=== PATIENT | male | born 1960 | race Caucasian/White ===

== ENCOUNTER 2017-01-07 06:24 | Inpatient (IN) | payer BC ==
[2016-12-31 11:39] LABS: HEMOGLOBIN 15.8 g/dL (13.6-17.8)
[2016-12-31 11:54] LABS: CALCIUM, SERUM 9.1 MG/DL (8.5-10.4); CHLORIDE, SERUM 95 MMOL/L (96-112); CO2 (CARBON DIOXIDE) 29 MMOL/L (24-34); CREATININE 0.85 MG/DL (0.70-1.30); GFR AFRICAN AMERICAN 114 ML/MIN (>=60); GFR NON AFRICAN AMERICAN 98 ML/MIN (>=60); SODIUM, SERUM 133 MMOL/L (135-148)
[2016-12-31 11:55] LABS: BUN (BLOOD UREA NITROGEN) 8 MG/DL (6-23); GLUCOSE, SERUM 137 MG/DL (60-99)
[2016-12-31 11:57] LABS: POTASSIUM, SERUM 3.4 MMOL/L (3.5-5.3)
--- NOTE | ~2017-01-07 | DS ---
Discharge Summary [facility] [address] [place]. [address] NAME: ANGELIC BEEBE : 62 STATUS : DIS IN PAT#: [id number] AGE: 56 ADM/REG DATE : 01/07/17 MR#: [id number] REPORT SERV DATE: 01/22/17 DICTATED BY: YOVANI CARLSON DATE: 01/21/17 REPORT STATUS : Draft TRANSCRIBED BY: MODLuis Enrique DATE: 01/21/17 Data Collection from hospitalization DISCHARGE DIAGNOSES: 1. Severe spinal stenosis with myelopathy at T11-12, secondary to large synovial cyst and facet hypertrophy. 2. Hypertension. 3. Osteoarthritis. 4. Exogenous obesity. 5. Hypercholesterolemia. CONSULTATIONS: None. PROCEDURES PERFORMED: Microscopic and navigation-assisted surgery; complete laminectomy, foraminotomy, and facetectomy, T11-T12; Janay osteotomy at T11; posterolateral spinal fusion with Solera nonsegmental instrumentation T11-T12, 01/07/2017. PATHOLOGY: Vertebral bone and soft tissue, thoracic spine-chronic reactive changes (no crystals). Soft tissues thoracic spine-benign cyst consistent with ganglion cyst. DISCHARGE MEDICATIONS: Zyloprim 300 mg daily, Norvasc 10 mg daily, Lipitor 10 mg daily, Colace 100 mg daily, Lasix 40 mg daily, Zestoretic one tablet daily, Robaxin 750 mg three times a day, Toprol-XL 25 mg daily, Prilosec 20 mg daily, Roxicodone 5-10 mg every four to six hours as needed, Klor-Con 10 mEq daily, Flomax 0.4 mg daily, Ultram 50 mg every six hours as needed. CONDITION AT DISCHARGE: Stable. DISPOSITION: The patient was discharged home on a regular diet with activities as instructed. He would follow up with Dr. Octavia Busch, 01/22/2017. HOSPITAL COURSE: This is a 56-year-old man, who had complained of back pain and leg pain with weakness in both lower extremities. He had had these symptoms for several months and the pain was getting worse. He had a lot of weakness in both legs and numbness and tingling in the feet. The pain can be as high as 10/10 and on most days, is a 6-8 on a scale of 0- 10. He had been losing hours every week at work due to the pain being so severe. Plain x- rays did show some decrease in disk height at L2-L3 and L4-L5, but an MRI showed a large and severe spinal stenosis at T11-T12. He has some broad-based disk protrusion at L4-L5 and L5- S1, but these were only [id number]-[id number] narrowing of the canal. Much more significant was the hypertrophy of the ligamentum flavum and cystic formation of the facet joint resulting in severe focal central spinal stenosis with only a 4 mm canal and severe flattening of the cord. He was myelopathic on exam. Treatment options were discussed and it was elected to proceed with surgical intervention. He was admitted to the hospital at this time for further evaluation and treatment. Upon admission, he was taken to the operating room, where he underwent the above-mentioned procedure. He tolerated this well and there were no complications. On postop day one, he was doing well. His leg and feet felt much better. He was up walking in his room. He was Discharge Summary [address] [address] NAME: ANGELIC BEEBE : 62 STATUS : DIS IN PAT#: [id number] AGE: 56 ADM/REG DATE : 01/07/17 MR#: [id number] REPORT SERV DATE: 01/22/17 DICTATED BY: YOVANI CARLSON DATE: 01/21/17 REPORT STATUS : Draft TRANSCRIBED BY: LLOYD DATE: 01/21/17 changed to oral medications. Discharge planning was performed. He was evaluated by Physical Therapy. On 01/10/2017, he was transferring well in his room. He was ambulating. He said that he was feeling much better. Discharge instructions were given. Due to his improved and stable condition, he was discharged home with the above-stated instructions. Information collected by: Jennifer Em I submit the above information as my discharge summary. TG/LLOYD Yovani Carlson D.O. / [id number] CC: Natalie Guaman M.D.
--- NOTE | ~2017-01-07 | OP ---
Record Of Operation [facility] [address] [place]. [address] NAME: ANGELIC BEEBE : 62 STATUS : ADM IN PAT#: [id number] AGE: 56 ADM/REG DATE : 01/07/17 MR#: [id number] REPORT SERV DATE: 01/07/17 DICTATED BY: YOVANI CARLSON DATE: 01/07/17 REPORT STATUS : Draft TRANSCRIBED BY: MODL DATE: 01/07/17 DATE OF PROCEDURE: PREOPERATIVE DIAGNOSIS: Severe spinal stenosis with myelopathy at T11-12, secondary to a large synovial cyst, and facet hypertrophy. POSTOPERATIVE DIAGNOSIS: Severe spinal stenosis with myelopathy at T11-12, secondary to a large synovial cyst, and facet hypertrophy. PROCEDURES: 1. Microscopic and navigation assisted surgery. 2. Complete laminectomy, foraminotomy, and facetectomy, T11-12. 3. Janay osteotomy at T11. 4. Posterolateral spinal fusion with Solera nonsegmental instrumentation, T11-12. SURGEON: Yovani Carlson D.O. MANAGER ETL: Woody Layton. ANESTHESIA: General. ESTIMATED BLOOD LOSS: 100 mL. INDICATION FOR SURGERY: Indications for surgery and risks were explained. They are listed in the last office note as well as the history and physical. See that for detail. DESCRIPTION OF PROCEDURE: Antibiotic prophylaxis was given. Neurophysiology monitoring leads were inserted. The patient was brought to the operative suite. General anesthetic including endotracheal intubation was administered. Duran catheter was placed with sterile technique. The patient was placed prone on a Amauri spine frame. Bony prominences were carefully padded. Thoracolumbar spine was scrubbed with Hibiclens solution. DuraPrep was painted. Sterile drapes were applied. Because of the complexity of surgery, and the need to identify the correct level of surgery intraoperatively, as well as desire to carry out the safest and most precise dissection, we felt that intraoperative navigation was mandatory. Initially, we used a C-arm to mehrdad the T11-T12 area. We counted from the sacrum proximal, there was 5 lumbar vertebrae. The last rib it was T12 and we used the narrowed disk space at L1-2, as well as the rib of T12 to be able to identified T11 and T12. We initially carried out a skin incision approximately 8 cm in length. The fascia was divided in midline. The paraspinous muscles were retracted laterally. Wide exposure was carried out. Intraoperative CT scan with O-arm was obtained, CT information was used to register the navigational system. With navigational assistance, initially, we created a aerial applicator pilot hole through the pedicle of T11 Record Of Operation [facility] [address] [place]. [address] NAME: ANGELIC BEEBE : 62 STATUS : ADM IN PAT#: [id number] AGE: 56 ADM/REG DATE : 01/07/17 MR#: [id number] REPORT SERV DATE: 01/07/17 DICTATED BY: YOVANI CARLSON DATE: 01/07/17 REPORT STATUS : Draft TRANSCRIBED BY: LLOYD DATE: 01/07/17 and T12, and the pedicles were then tapped. We then used a navigated cutting bur, and we transected through the midportion of the lamina and also we transversely transected the lamina at the very inferior edge of the pedicle of T11, that allowed us to completely lift off the facet inferiorly of T11, without having to manipulate the cord or placed any instruments within the canal itself. We did this bilaterally. We could see immediately that there was a large dorsal synovial cyst, as well as a left-sided synovial cyst. The cord was compressed severely towards the right and anteriorly. Initially, I used the navigated drill and removed the very medial edge of the facet of T11. I also removed the hypertrophied ligamentum flavum and was able to then lift off the cyst dorsally that expanded over the T11 down to the top of T12. I then were carefully from [id number] removed the superior portion of the T12 facet down flushed with the pedicle, and moved around the pedicle, and ultimately, I was able to under microscopic dissection, I freed the synovial cyst from the dura, and lifted it off completely. Afterwards, the cord was able to return to normal pulsations. No CSF leakage or any problem was encountered. The wound was irrigated copiously. The transpedicular screws were then placed at T11 and T12 bilaterally. A 35 mm vasu was placed over the top-loading screws. The set screw was inserted and tightened with a torque wrench. Finally, we used a combination of local bone graft, allograft, and a small dosage of bone protein, and carried out the posterolateral fusion from transverse process of T11 to T12. Intraoperative CT scan was repeated showing good position of all implants and hardware. Finally, the vancomycin powder was placed in the wound. A double looped #1 PDS was used for skin sterilely for fascial closure. The subcutaneous tissue was closed with 2-0 Vicryl sutures, 2-0 vertical mattress nylon suture was used for skin closure. Sterile dressings were applied. The patient was then returned to the supine position, awakened, extubated, and taken to recovery room in satisfactory condition having tolerated procedure well. JOSÉ/LLOYD Yovani Carlson D.O. / [id number] CC: Yovani Carlson D.O.
--- NOTE | ~2017-01-07 | PREOPHP ---
PreOp History and Physical [facility] [address] [place]. [address] NAME: ANGELIC BEEBE : 62 STATUS : ADM IN PAT#: [id number] AGE: 56 ADM/REG DATE : 01/07/17 MR#: [id number] REPORT SERV DATE: 01/07/17 DICTATED BY: YOVANI CARLSON DATE: 01/07/17 REPORT STATUS : Draft TRANSCRIBED BY: MODLuis Enrique DATE: 01/07/17 CHIEF COMPLAINT: Severe back pain and bilateral leg pain. HISTORY OF PRESENT ILLNESS: This is a 56-year-old male with back pain and leg pain with also weakness in both lower extremities. He has had symptoms for several months with the pain getting much worse. He is now having a lot of weakness in both legs with numbness and tingling in the feet. Pain can be as high as 10 out of 10, on most days is 6 to 8 on a scale of 0 to 10. He has been losing hours every week at work due to the pain being so severe. He has had plain x-rays which did show some decrease in disk height at L2-L3 and L4 L5 but an MRI was obtained which showed a large and severe spinal stenosis at T11-T12. He does have some broad-based disk protrusion at L4-L5 and at L5-S1, but these are only mild-to moderate narrowing of the canal. Much more significant is the hypertrophy of the ligamentum flavum and the cystic formation of the facet joints resulting in severe focal central spinal stenosis with only a 4-mm canal and severe flattening of the cord. He is myelopathic on exam. He is brought to Surgery for a T11-T12 complete laminectomy and foraminotomy with facetectomy. With a bilateral facetectomy, he will have instability with the need for re- stabilization; this will be done through a transforaminal diskectomy, interbody cage insertion, posterior lateral interbody fusion, as well as posterior lateral fusion and a nonsegmental instrumentation of T11 as well. Prior to surgery, I have gone over the risks, benefits, alternatives, and expectations in great detail, and he understands the risks that include everything up to and including paralysis and . Consent form has been signed. NARRATIVE: Today, in the preop holding, all questions were answered. The patient voiced understanding of the risks and a willingness to accept those and requested to proceed with surgery. PAST MEDICAL HISTORY: Included exogenous obesity, hypertension, hypercholesterolemia, and osteoarthritis. PAST SURGICAL HISTORY: Included knee arthroscopy on the right. CURRENT MEDICATIONS: Allopurinol, amlodipine, atorvastatin, Flomax, Lasix, potassium, lisinopril, meloxicam, metoprolol, potassium, and tramadol. ALLERGIES: NONE. SOCIAL HISTORY: He is . Lives alone. 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 Never smoked. Never uses alcohol. FAMILY HISTORY: Noncontributory. REVIEW OF SYSTEMS: He denies any chest pain, pressure, or shortness of breath. Has had no recent change in bowel and bladder function. PHYSICAL EXAMINATION: VITAL SIGNS: He is 5 feet 10 inches, 285 pounds. BMI is 40.9. He is alert, cooperative, PreOp History and Physical [address] [address] NAME: ANGELIC BEEBE : 62 STATUS : [facility]M IN [facility]#: [id number] AGE: 56 ADM/REG DATE : 01/07/17 MR#: [id number] REPORT SERV DATE: 01/07/17 DICTATED BY: YOVANI CARLSON DATE: 01/07/17 REPORT STATUS : Draft TRANSCRIBED BY: LLOYD DATE: 01/07/17 and well oriented. He does ambulate independently. HEENT: Apparently, he is balding. He has normocephalic features. His pupils are equal and reactive to light. Extraocular muscles intact. Oral exam is grossly normal. LUNGS: Clear to auscultation. HEART: Rate is regular and rhythmic. ABDOMEN: Soft with good bowel sounds. No peritoneal signs are noted. MUSCULOSKELETAL: The spine itself has no deformities. There is limited range of motion in the spine. He cannot heel-walk or toe-walk. There is a feeling of imbalance. Motor strength is weak in and around the proximal musculature of the iliopsoas. The abductors are all 4- over 5. The quadriceps, hamstrings, tibialis anterior, and gastrocsoleus are 4+/5. He does have hyperreflexia of both patella and Achilles reflexes. He has sustained ankle clonus. His toes are upgoing. There is some stock and glove decreased sensation from the waist distally. He does have an approximately a T12 sensory level below the waist. I did not do a cremasteric reflex or a rectal exam. ORTHOPEDIC: He has no pain with moving his hips, knees, or ankles. There are pulses in all four extremities. SKIN: No abnormal skin lesions found. ASSESSMENT: Severe high-grade spinal stenosis, T11-T12, with myelopathy. RECOMMENDATIONS: As listed above. /MODL Yovani Carlson D.O. / [id number] CC: Natalie Guaman M.D.
[~2017-01-07 06:24] MED LIST: FLOMAX4 PO; KLOR-CON 1010 MEQ PO; L40 PO; LIPITOR10 PO; MOBIC15 MG PO; NORV10 PO; PERCOCET 10/3251 TAB PO; PRILO PO; TOPXL25 PO; ULTRAM50 PO; Z300 PO; ZESTORETIC1 TA1 PO
[2017-01-07 12:47] LABS: BASOPHILS 0.2 %; BASOPHILS ABSOLUTE 0.03 10/3/uL (0.0-0.16); EOSINOPHILS 0.1 %; EOSINOPHILS ABSOLUTE 0.01 10/3/uL (0.0-0.53); HEMATOCRIT 42.2 % (40.0-51.0); HEMOGLOBIN 14.8 g/dL (13.6-17.8); IMMATURE GRANULOCYTES 0.5 %; IMMATURE GRANULOCYTES ABSOLUTE 0.06 10/3/uL (0.0-0.11); LYMPHOCYTES 10.5 %; LYMPHOCYTES ABSOLUTE 1.27 10/3/uL (0.67-4.30); MANUAL DIFF NO %; MEAN CORPUS HGB CONC 35.4 g/dL (32.0-36.0); MEAN CORPUSCULAR HEMOGLOB 32.9 pg (26.0-34.0); MEAN CORPUSCULAR VOLUME 87.6 fL (80-100); MEAN PLATELET VOLUME 9.3 fL (9.2-13.0); MONOCYTES 1.7 %; MONOCYTES ABSOLUTE 0.21 10/3/uL (0.21-1.20); NEUTROPHILS ABSOLUTE 10.54 10/3/uL (2.02-8.40); PLATELET COUNT 296 10/3/uL (150-400); WHITE BLOOD CELLS 12.1 10/3/uL (4.5-10.5)
[2017-01-07 12:57] LABS: BUN (BLOOD UREA NITROGEN) 5 MG/DL (6-23); CALCIUM, SERUM 9.3 MG/DL (8.5-10.4); CHLORIDE, SERUM 100 MMOL/L (96-112); CO2 (CARBON DIOXIDE) 24 MMOL/L (24-34); CREATININE 0.84 MG/DL (0.70-1.30); GFR AFRICAN AMERICAN 114 ML/MIN (>=60); GFR NON AFRICAN AMERICAN 99 ML/MIN (>=60); GLUCOSE, SERUM 189 MG/DL (60-99); POTASSIUM, SERUM 3.5 MMOL/L (3.5-5.3); SODIUM, SERUM 134 MMOL/L (135-148)
[2017-01-08 05:06] LABS: BASOPHILS 0.1 %; BASOPHILS ABSOLUTE 0.01 10/3/uL (0.0-0.16); EOSINOPHILS 0 %; HEMATOCRIT 40.3 % (40.0-51.0); HEMOGLOBIN 15.3 g/dL (13.6-17.8); IMMATURE GRANULOCYTES 0.3 %; IMMATURE GRANULOCYTES ABSOLUTE 0.05 10/3/uL (0.0-0.11); LYMPHOCYTES 4.3 %; LYMPHOCYTES ABSOLUTE 0.74 10/3/uL (0.67-4.30); MEAN CORPUSCULAR HEMOGLOB 33.4 pg (26.0-34.0); MEAN PLATELET VOLUME 9.8 fL (9.2-13.0); MONOCYTES ABSOLUTE 0.52 10/3/uL (0.21-1.20); NEUTROPHILS 92.3 %; NEUTROPHILS ABSOLUTE 15.96 10/3/uL (2.02-8.40); PLATELET COUNT 314 10/3/uL (150-400); RED CELL COUNT 4.58 10/6/uL (4.7-6.1)
[2017-01-08 05:10] LABS: MANUAL DIFF NO %; WHITE BLOOD CELLS 17.3 10/3/uL (4.5-10.5)
[2017-01-08 05:22] LABS: BUN (BLOOD UREA NITROGEN) 6 MG/DL (6-23); CHLORIDE, SERUM 95 MMOL/L (96-112); CO2 (CARBON DIOXIDE) 28 MMOL/L (24-34); CREATININE 0.91 MG/DL (0.70-1.30); GFR AFRICAN AMERICAN 110 ML/MIN (>=60); GFR NON AFRICAN AMERICAN 95 ML/MIN (>=60); GLUCOSE, SERUM 197 MG/DL (60-99); POTASSIUM, SERUM 3.5 MMOL/L (3.5-5.3); SODIUM, SERUM 133 MMOL/L (135-148)
[2017-01-08 07:17] LABS: PLATELET ESTIMATE ADQ (ADEQUATE); RBC MORPHOLOGY NORM (NORMAL)
[2017-01-10] MEDS ORDERED: DSS PO (11:40)
[2017-01-10] MEDS ORDERED: OXYCOD PO (11:40)
[2017-01-10] MEDS ORDERED: METHOC750B PO (11:41)
== END 2017-01-10 13:37 | disposition home or self-care (01) | DRG 460 ==
LOC: SDC/OF 06:24 → PACU 12:22 → 3SO 14:25
PROVIDERS: Orthopaedic Surgery Orthopaedic Surgery of the Spine
PROC: 0RG60Z1 (ICD-10-PCS; principal; 2017-01-07 08:15)
PROC: 4A11X4G Monitoring of Peripheral Nervous Electrical Activity, Intraoperative, External Approach (ICD-10-PCS; 2017-01-07 08:15)
DX: M71.38 Other bursal cyst, other site (principal); M51.04 Intervertebral disc disorders with myelopathy, thoracic region; Z68.41 Body mass index [BMI] 40.0-44.9, adult; M48.04 Spinal stenosis, thoracic region; E66.01 Morbid (severe) obesity due to excess calories; I10 Essential (primary) hypertension; E78.00 Pure hypercholesterolemia, unspecified; Z79.1 Long term (current) use of non-steroidal anti-inflammatories (NSAID); Z79.899 Other long term (current) drug therapy
CPT/HCPCS: 71010; 80048; 82962; 85014; 85018; 85025; 87641; 88304; 88305; 88311; 93005; 97116-GP; 97161-GP; A9270-GY; C1713; J0690; J1170; J1644; J2250; J2405; J2710; J3010; J3370